=== PATIENT | female | born 1975 | race Two or more races ===

== ENCOUNTER 2020-03-22 10:30 | Emergency (ER) | payer MEDICAID ==
[~2020-03-22] VITALS: Ht 167.6 cm; Wt 79.4 kg
[2020-03-22] MEDS ORDERED: SODIUM CHLORIDE 0.9% 1,000 ML IV ONE (10:45)
[2020-03-22 11:07] LABS: Basophils # (auto) 0 10 ^3/uL (0-0.2); Basophils % (auto) 0.1 % (0.0-2.0); Eosinophils # (auto) 0 10 ^3/uL (0-0.8); Hemoglobin 7.6 g/dL (12.2-16.2)
[2020-03-22 11:11] LABS: Hematocrit 23.1 % (36.0-46.0); Lymphocytes % (auto) 6.7 % (10.0-50.0); Mean Corpuscular Hemoglobin 30.7 pg (28.0-32.0); Mean Corpuscular Volume 93.1 fL (80.0-100.0); Monocytes # (auto) 0.5 10 ^3/uL (0-1.3); Neutrophils # (auto) 13.9 10 ^3/uL (1.6-8.6); Neutrophils % (auto) 90.2 % (37.0-80.0); Nucleated Red Blood Cells % 0.1 %; Platelet Count (auto) 287 10^3/uL (140-450); Red Blood Cells 2.48 10^6/uL (4.0-5.20); Red Cell Distribution Width 13.9 % (11.8-14.3); White Blood Cell 15.5 10^3/uL (4.4-10.8)
[2020-03-22 11:30] LABS: Albumin 3.5 g/dL (3.4-5.0); Potassium 3.8 mmol/L (3.5-5.1)
[2020-03-22 11:33] LABS: BUN/Creatinine Ratio 12.1; Bilirubin, Total 0.7 mg/dL (0.2-1.0); Total Protein 6.6 g/dL (6.4-8.2)
[2020-03-22] MEDS ORDERED: medroxyPROGESTERone ACETATE 5 MG TAB PO ONE (12:00)
[2020-03-22 16:44] VITALS: BP 117/62
[2020-03-22 17:02] VITALS: BP 124/68
[2020-03-22 18:25] VITALS: BP 131/69
== END 2020-03-22 18:36 | disposition home or self-care (01) ==
LOC: ER 10:30
DX: N93.9 Abnormal uterine and vaginal bleeding, unspecified (principal); D64.9 Anemia, unspecified; D28.2 Benign neoplasm of uterine tubes and ligaments; E78.5 Hyperlipidemia, unspecified
CPT/HCPCS: 36415; 36430; 76830; 76856; 80053; 85025; 86850; 86900; 86901; 86920; 93005; 96360; 99285; J7030; P9016